=== PATIENT | female | born 1995 | race American Indian/Alaskan Native ===

== ENCOUNTER 2018-10-13 10:06 | Emergency (ER) | payer OTHER ==
[2018-10-13 10:33] VITALS: BP 110/59
[2018-10-13 11:42] LABS: HCG Qualitative,Urine Negative (Negative)
[2018-10-13 11:44] LABS: Mucus,Urine FEW /HPF; WBC,Urine < 1.0 /HPF (0.0-6.0)
[2018-10-13 11:54] LABS: Bilirubin,Urine NEG (Negative); Blood,Urine NEG (Negative); Color,Urine Yellow (Yellow); Protein,Urine <15 mg/dL mg/dL (Negative); Urobilinogen,Urine < 2.0 mg/dL (<2.0)
--- NOTE | 2018-10-13 12:35 | Emergency Department Report ---
ED Dysuria HPI - HPI Chief Complaint: Back Pain/Injury Stated Complaint: BACK PAIN/MAYBE Symptoms: Dysuria: No, Frequency: No, Suprapubic Pain: No, Flank Pain: No, Fever: No, Hematuria: No, Abdominal Pain: No, Previous UTI's: No Other History: Patient is a 23-year-old female who comes to the ER today because she has had irregular periods for 6 months and she is concerned she is . ED Review of Systems ROS: Stated complaint: BACK PAIN/MAYBE Other details as noted in HPI Comment: All other systems reviewed and negative Endocrine: denies: flushing Gastrointestinal: denies: nausea Genitourinary: as per HPI, abnormal menses Musculoskeletal: denies: back pain Skin: denies: rash Neurological: denies: headache Psychiatric: denies: anxiety Hematological/Lymphatic: denies: easy bleeding ED Past Medical Hx - Past Medical History Previous Medical History?: No - Surgical History Past Surgical History?: No - Family History Family history: no significant - Social History Smoking Status: Never Smoker Substance Use Type: None - Medications Home Medications: Home Medications Medication Instructions Recorded Confirmed Last Taken Type Norethindrone-E.estradiol-Iron 1 tab PO DAILY 01/07/16 01/07/16 01/07/16 History [Microgestin Fe 1.5-30 Tab] Sulfamethoxazole/Trimethoprim 1 each PO BID #10 tablet 01/08/16 Unknown Rx [Bactrim DS TAB] Dysuria Exam - Exam General: Vital signs noted. No distress. Alert and acting appropriately. Exam: Yes Moist Mucous Membranes, No CVA Tenderness, No Abdominal Tenderness, No Rigidity or Guarding Labs: Lab Results 10/13/18 Range/Units 11:17 Urine Color Yellow (Yellow) Urine Turbidity Clear (Clear) Urine pH 7.0 (5.0-7.0) Ur Specific [place] 1.013 (1.003-1.030) Urine Protein <15 mg/dl (Negative) mg/dL Urine Glucose (UA) Neg (Negative) mg/dL Urine Ketones Neg (Negative) mg/dL Urine Blood Neg (Negative) Urine Nitrite Neg (Negative) Ur Reducing Substances Not Reportable Urine Bilirubin Neg (Negative) Urine Ictotest Not Reportable Urine Urobilinogen < 2.0 (<2.0) mg/dL Ur Leukocyte Esterase Neg (Negative) Urine WBC (Auto) < 1.0 (0.0-6.0) /HPF Urine RBC (Auto) 2.0 (0.0-6.0) /HPF U Epithel Cells (Auto) 1.0 (0-13.0) /HPF Urine Mucus Few /HPF Urine HCG, Qual Negative (Negative) ED Course Vital Signs 10/13/18 10:29 Temperature 97.9 F Pulse Rate 61 Respiratory 16 Rate Blood Pressure 110/59 O2 Sat by Pulse 100 Oximetry ED Medical Decision Making - Medical Decision Making Labs 10/13/18 11:17 Urine Color Yellow Urine Turbidity Clear Urine pH 7.0 Ur Specific [place] 1.013 Urine Protein <15 mg/dl Urine Glucose (UA) Neg Urine Ketones Neg Urine Blood Neg Urine Nitrite Neg Ur Reducing Substances Not Reportable Urine Bilirubin Neg Urine Ictotest Not Reportable Urine Urobilinogen < 2.0 Ur Leukocyte Esterase Neg Urine WBC (Auto) < 1.0 Urine RBC (Auto) 2.0 U Epithel Cells (Auto) 1.0 Urine Mucus Few Urine HCG, Qual Negative - Differential Diagnosis RO PREG Critical care attestation.: If time is entered above; I have spent that time in minutes in the direct care of this critically ill patient, excluding procedure time. ED Disposition Clinical Impression: Irregular menses Disposition: DC-01 TO HOME OR SELFCARE Is pt being admited?: No Does the pt Need Aspirin: No Condition: Stable Additional Instructions: FOLLOW UP WITH FEMALE SPECIALIST FOR YOUR IRREGULAR PERIODS Referrals: LIZ GARBER CNM [Staff Physician] - 3-5 Days SWAPNA OGDEN MD [Staff Physician] - 3-5 Days Time of Disposition: 12:34
== END 2018-10-13 12:50 | disposition home or self-care (01) ==
LOC: ED 10:06
DX: N92.6 Irregular menstruation, unspecified (principal)
CPT/HCPCS: 81001; 81025